=== PATIENT | male | born 1995 | race Caucasian/White ===

== ENCOUNTER 2016-07-27 07:01 | Emergency (ER) | payer OTHER ==
[~2016-07-27 07:01] MED LIST: AMOXICILLIN500 M1 PO; CORTISPORI10 ML SUSP AS; ELIMITE60 GM TOP; LISINOPRIL2.5 MG PO; NO MEDICATIONS; PREDNISONE10 MG/DOSE PO
== END 2016-07-27 07:11 | disposition home or self-care (01) ==
LOC: SED 07:01
DX: L30.1 Dyshidrosis [pompholyx] (principal); F17.200 Nicotine dependence, unspecified, uncomplicated
CPT/HCPCS: 99282